=== PATIENT | male | born 1955 | race Caucasian/White ===

== ENCOUNTER 2018-08-01 18:22 | Inpatient (IN) | payer BC ==
[2018-08-01 22:15] LABS: ADD MAN DIFF? NO
[2018-08-01 22:19] LABS: WHITE BLOOD COUNT 7.5 10^3/ul (4.8-10.8)
[2018-08-01 22:19] LABS: BASOPHILS % 0.4 % (0.0-2.0); EOSINOPHILS # 0.2 10^3/ul (0.0-0.5); HEMOGLOBIN 13.7 g/dl (14.0-18.0); LYMPHOCYTES # 1.7 10^3/ul (0.8-2.9); LYMPHOCYTES % 22.1 % (15.0-51.0); MEAN CORPUSCULAR HGB CONC 33.4 g/dl (32.0-37.0); MEAN CORPUSCULAR VOLUME 89.9 fl (82.0-101.0); MEAN PLATELET VOLUME 9.5 fl (7.4-10.4); MONOCYTE # 0.7 10^3/ul (0.3-0.9); MONOCYTES % 8.8 % (0.0-11.0); NEUTROPHILS % 66.3 % (39.0-77.0); PLATELET COUNT 180 10^3/UL (140-415); RED BLOOD COUNT 4.56 10^6/ul (4.70-6.10); RED CELL DISTRIBUTION WIDTH 12.8 % (11.5-14.5)
[2018-08-01 22:36] LABS: ANION GAP 12 (8-16); BLOOD UREA NITROGEN 16 mg/dl (7-20); CALCIUM 9.7 mg/dl (8.4-10.2); CARBON DIOXIDE 26 mmol/L (21-31); CHLORIDE 107 mmol/L (97-110); CREATININE 0.92 mg/dl (0.61-1.24); GLUCOSE 143 mg/dl (70-220); POTASSIUM 3.9 mmol/L (3.5-5.1); SODIUM 141 mmol/L (135-144)
[2018-08-01 22:44] LABS: INR 1.01; PROTIME 13.4 Sec (11.9-14.9)
[2018-08-01 22:45] LABS: PARTIAL THROMBOPLASTIN TIME 29.4 Sec (25.0-35.0)
[2018-08-01] MEDS ORDERED: ONDANSETRON 4 MG INJ IV (23:00)
[2018-08-01] MEDS ORDERED: ACETAMINOPHEN 325 MG TAB PO (23:00)
[2018-08-01] MEDS: APIXABAN 5 MG TABLET PO (23:05)
[2018-08-02] MEDS: APIXABAN 5 MG TABLET PO ×2 (08:59→17:32)
[2018-08-05 15:33] LABS: PROTEIN C 59 % normal (70-180)
[2018-08-05 18:31] LABS: ANA SCREEN POSITIVE (NEGATIVE)
[2018-08-05 19:21] LABS: B2 GLYCOPROTEIN I AB (IGA) <9 SAU (< OR = 20); B2 GLYCOPROTEIN I AB (IGG) <9 SGU (< OR = 20); B2 GLYCOPROTEIN I AB (IGM) <9 SMU (< OR = 20)
[2018-08-05 21:34] LABS: ANA PATTERN SPECKLED; ANA TITER 1:40 titer
[2018-08-06 12:17] LABS: CARDIOLIPIN AB - IGA <11 APL; CARDIOLIPIN AB - IGG <14 GPL; CARDIOLIPIN AB - IGM <12 MPL
== END 2018-08-02 18:15 | disposition home or self-care (01) | DRG 951 ==
LOC: FTE 18:22 → MS1 22:34
DX: Z86.718 Personal history of other venous thrombosis and embolism (principal); I82.431 Acute embolism and thrombosis of right popliteal vein; E66.9 Obesity, unspecified; Z68.35 Body mass index [BMI] 35.0-35.9, adult; Z83.2 Family history of diseases of the blood and blood-forming organs and certain disorders involving the immune mechanism
CPT/HCPCS: 80048; 81240; 83890; 85025; 85300; 85302; 85305; 85610; 85613; 85730; 86038; 86146; 86147; 93970; 99285-25